=== PATIENT | female | born 1970 | race African-American/Black ===

== ENCOUNTER 2020-07-29 14:47 | Emergency (ER) | payer MEDICARE, MEDICAID ==
[~2020-07-29] VITALS: Ht 172.7 cm; Wt 91.4 kg
[~2020-07-29 14:47] MED LIST: B/P MED; BUPR75TA5 PO; CALC500T14 PO; GLIM1TAB7 PO; PANT20TA2 PO; POTA10TA PO; TRAZ50TA66 PO
[2020-07-29 15:27] LABS: BASOPHILS % (AUTO) 1 % (0-1); EOSINOPHILS % (AUTO) 1 % (1-7); LYMPHOCYTES % (AUTO) 31 % (22-44); MEAN CORPUSCULAR HEMOGLOBIN 30.9 pg (27.0-34.8); MEAN CORPUSCULAR HGB CONC 33.7 g/dL (32.4-35.8); MEAN PLATELET VOLUME 7.7 fL (7.4-10.4); MONOCYTES % (AUTO) 8 % (2-9); NEUTROPHILS % (AUTO) 59 % (42-75); PLATELET COUNT 415 x10^3/uL (130-400); RED CELL DISTRIBUTION WIDTH 14.9 % (9.6-15.2)
[2020-07-29] MEDS ORDERED: SODIUM CHLORIDE FLUSH 10ML SYR IVF ONE ×2 (15:30→18:30)
[2020-07-29] MEDS ORDERED: ONDANSETRON 2MG/ML, 2ML IVPush ONE ×2 (15:30→18:30)
[2020-07-29 15:33] LABS: MD NO
[2020-07-29 15:36] LABS: ALANINE AMINOTRANSFERASE 27 U/L (12-78); ALBUMIN 3.8 g/dL (3.4-5.0); ANION GAP 8 mmol/L (5-15); CHLORIDE 104 mmol/L (98-107); CREATININE 1.11 mg/dL (0.55-1.02)
[2020-07-29 15:40] LABS: ALKALINE PHOSPHATASE 44 U/L (45-117); BILIRUBIN,TOTAL 0.5 mg/dL (0.2-1.0); TOTAL PROTEIN 7.6 g/dL (6.4-8.2); TROPONIN I < 0.015 ng/mL (0.000-0.045)
--- NOTE | 2020-07-29 17:55 | NUR ---
PT AMBUALTED STEADILY TO ROOM FROM LOBBY. NAD NOTED.
[2020-07-29] MEDS ORDERED: ONDANSETRON 2MG/ML, 2ML ONE (18:09)
--- NOTE | 2020-07-29 18:24 | NUR ---
TASK RNPROVIDER TO BEDIDE-PLAN TO HYDRATE/ADMIN NAUSEA MEDS. AVOID COVID SWAB PIV PLACED-MEDICATED PER EMAR
[2020-07-29] MEDS ORDERED: SODIUM CHLORIDE 0.9% 1,000ML IVBOLUS ONE (18:30)
[2020-07-29 20:03] VITALS: BP 108/67
== END 2020-07-29 20:46 | disposition home or self-care (01) ==
LOC: ED 20:24
DX: R51.9 Headache, unspecified (principal); R11.2 Nausea with vomiting, unspecified; R19.7 Diarrhea, unspecified; R07.89 Other chest pain; R50.9 Fever, unspecified; R06.02 Shortness of breath; I10 Essential (primary) hypertension; E11.9 Type 2 diabetes mellitus without complications; F17.200 Nicotine dependence, unspecified, uncomplicated
CPT/HCPCS: 36415; 71045; 80053; 84484; 85025; 93005; 96361; 96374; 99285; J2405; J7030